=== PATIENT | female | born 1990 | race Caucasian/White ===

== ENCOUNTER 2022-11-09 13:59 | Emergency (ER) | payer OTHER ==
[2022-11-09] MEDS ORDERED: Boostrix 0.5 ML (Tdap) VIAL (>/=7 yrs of age) ONE (14:45)
[2022-11-09] MEDS ORDERED: Lidocaine 1% MPF 2 ML VIAL ONE (16:10)
[2022-11-09] MEDS ORDERED: Bacitracin 1 PK ONE (16:23)
== END 2022-11-09 17:13 | disposition home or self-care (01) ==
LOC: ERS 13:59
DX: S61.211A Laceration without foreign body of left index finger without damage to nail, initial encounter (principal); F17.210 Nicotine dependence, cigarettes, uncomplicated; W26.9XXA Contact with unspecified sharp object(s), initial encounter; Z23 Encounter for immunization
CPT/HCPCS: 12001; 90471; 90715